=== PATIENT | male | born 1965 | race Caucasian/White ===

== ENCOUNTER 2022-08-09 13:37 | Inpatient (IN) | payer OTHER ==
--- NOTE | 2022-08-09 14:12 | RAD REPORT ---
EXAM DESCRIPTION: CT - Ct Stroke Brain Wo Cont - 08/09/2022 1:57 pm CLINICAL HISTORY: STROKE ALERTright-sided facial droop COMPARISON: No comparisons TECHNIQUE: Axial 5 millimeter thick images of the head were obtained without IV contrast. All CT scans are performed using dose optimization technique as appropriate and may include automated exposure control or mA/KV adjustment according to patient size. FINDINGS: No intracranial hemorrhage, mass, or cerebral edema. No acute infarction identifiable. No extra-axial fluid collections. Storm matter-white matter differentiation is preserved. Visualized portions of the mastoid air cells, paranasal sinuses, and orbits are unremarkable. Findings telephoned to doctor Braydon at 1340 hours. IMPRESSION: No CT evidence of acute intracranial process.
[2022-08-09 14:22] LABS: Absolute Lymphocytes (CBC) 2.1 K/uL (0.7-4.9); Hematocrit 41.7 % (39.6-49.0); Lymphocytes % 14.1 % (15.3-44.8); MCV 85.1 fL (80-100); MPV 9.1 fL (7.6-11.3)
[2022-08-09 14:37] LABS: Albumin 3.7 g/dL (3.4-5.0); Bilirubin Direct 0.3 mg/dL (0-0.2); Bilirubin Total 1.6 mg/dL (0.2-1.0); Potassium 3.1 mmol/L (3.5-5.1); Protein, Total 7.2 g/dL (6.4-8.2)
[2022-08-09 14:39] LABS: Troponin High Sensitivity 71.6 pg/mL (<58.9)
[2022-08-09 14:41] LABS: Protime INR 1.06
--- NOTE | 2022-08-09 15:03 | RAD REPORT ---
EXAM DESCRIPTION: CT - Head angio - 08/09/2022 2:54 pm CLINICAL HISTORY: STROKE ALERT Headache, drowsiness, CVA symptomology COMPARISON: Ct Stroke Brain Wo Cont dated 08/09/2022 TECHNIQUE: CT angiography of the head was performed with MIPs. All CT scans are performed using dose optimization technique as appropriate and may include automated exposure control or mA/KV adjustment according to patient size. FINDINGS: No evidence of aneurysm is detected. No flow-limiting stenosis or vascular malformation id entified. Antegrade flow is seen in the vertebral arteries. The vertebral arteries are codominant. The visualized dural venous sinuses are patent. IMPRESSION: No significant flow abnormality is detected.
--- NOTE | 2022-08-09 15:11 | RAD REPORT ---
EXAM DESCRIPTION: CT - Neck Angio - 08/09/2022 2:54 pm CLINICAL HISTORY: pain Headache, drowsiness, CVA symptomology COMPARISON: No comparisons TECHNIQUE: CT angiography of the neck vessels was performed with MIPs. All CT scans are performed using dose optimization technique as appropriate and may include automated exposure control or mA/KV adjustment according to patient size. FINDINGS: A left aortic arch is identified with normal three vessel configuration of the great vesse ls. No significant flow abnormality is seen of the common carotid bilaterally. Mild atherosclerosis both proximal ICAs. No significant carotid stenosis seen. Normal flow is seen within both vertebral arteries. IMPRESSION: No significant carotid stenosis identified.
--- NOTE | 2022-08-09 15:11 | RAD REPORT ---
EXAM DESCRIPTION: RAD - Chest Single View - 08/09/2022 3:02 pm CLINICAL HISTORY: CVA Chest pain. COMPARISON: No comparisons FINDINGS: Portable technique limits examination quality. The lungs are grossly clear. The heart is normal in size. No displaced fractures. IMPRESSION: No acute intrathoracic process suspected.
--- NOTE | 2022-08-09 15:13 | ER ---
Nurse's Notes [facility] Name: Valerio Yancey Age: 57 yrs Sex: Male : 1965 Arrival Date: 08/09/2022 Time: 13:46 Bed 19 Private MD: Diagnosis: New onset atrial fibrillation, chest pain, headache, facial droop Presentation: 08/09 13:57 Chief complaint: EMS states: [facility]3 stroke symptoms. patient complains of left sided headache, shortness of breath, and right sided facial droop. EMS started a 18 g IV in the patients right AC, and started NS bolus. Coronavirus screen: At this time, the client does not indicate any symptoms associated with coronavirus-19. Ebola Screen: No symptoms or risks identified at this time. The patients blood glucose was checked before arriving to the hospital and was found to be normal. Initial Sepsis Screen: Does the patient meet any 2 criteria? No. Patient's initial sepsis screen is negative. Does the patient have a suspected source of infection? No. Patient's initial sepsis screen is negative. Risk Assessment: Do you want to hurt yourself or someone else? Patient reports no desire to harm self or others. Note last known well is approx 0730 this morning 08/09/2022. Onset of symptoms is unknown. 13:57 Method Of Arrival: EMS: [facility] ap3 13:57 Acuity: HECTOR 2 ap3 13:57 An acute neurological deficit is present. ap3 Triage Assessment: 14:10 The onset of the patients symptoms was more than six hours ago. General: Appears ap3 distressed, Behavior is anxious. Pain: Complains of pain in left side of head, chest. Neuro: Facial droop on right, Reports dizziness, headache in left a syncopal episode. Cardiovascular: Patient's skin is warm and dry. Respiratory: Reports shortness of breath Airway is patent Respiratory effort is even, unlabored, Respiratory pattern is regular, symmetrical, tachypnea. 15:44 The onset of the patients symptoms was August 09, 2022 at 07:30. ap3 Stroke Activation: Physician: Stroke Attending; Name: ; Notified At: ; Arrived At: Physician: Chief Stroke Resident; Name: ; Notified At: ; Arrived At: Physician: Stroke Resident; Name: ; Notified At: ; Arrived At: Physician: ED Attending; Name: de león; Notified At: ; Arrived At: Physician: ED Resident; Name: ; Notified At: ; Arrived At: Historical: - Allergies: 14:09 No Known Allergies; ap3 - Home Meds: 14:10 unknown diuretic [Active]; ap3 - PMHx: 14:10 EJ of 40%; ap3 - Immunization history:: Client reports receiving the 2nd dose of the Covid vaccine. - Social history:: Smoking status: Patient denies any tobacco usage or history of. Screenin:30 [facility] ED Fall Risk Assessment (Adult) Confusion or Disorientation Yes (5 pts) ap3 Intoxicated or Sedated No (0 pts) Impaired Gait Yes (1 pt) Mobility Assist Device Used No (0 pt) Altered Elimination No (0 pt) Score/Fall Risk Level 3 or more points = High Risk Oriented to surroundings, Maintained a safe environment, Educated pt \T\ family on fall prevention, incl call for assistance when getting out of bed, Assessed \T\ reinforced patient's understanding of fall precautions, Provided non-skid footwear. Abuse screen: Denies threats or abuse. Nutritional screening: No deficits noted. Tuberculosis screening: No symptoms or risk factors identified. Assessment: 14:13 VAN Scoring:. ap3 15:29 Patient has been NPO before screening. The patient is alert, and able to follow ap3 commands. The patient does not exhibit slurred or garbled speech. The patient is not exhibiting difficulty speaking. The patient does not exhibit difficulty understanding words. The patient is able to swallow own secretions with no drooling or need for suction. Patient tolerated one teaspoon of water. No drooling, immediate coughing, gurgling, or clearing of the throat was noted. The patient tolerated 90mL of water. No drooling, immediate coughing, gurgling, or clearing of the throat was noted. The patient passed the bedside swallow screening. Oral medications may be given as ordered. Contact Physician for further diet orders. Provider notified of bedside swallow screening results: Estuardo De León MD. TNKase (Tenecteplase) Screening:. 17:06 Neuro: Level of Consciousness is awake, alert, obeys commands, Oriented to person, ap3 place, time, situation, Speech is normal. 17:40 Reassessment: nurse attempted report to receiving nurse. was informed the receiving ap3 nurse would return my call for report. 18:14 Reassessment: report given to receiving nurse. ap3 Vital Signs: 13:57 BP 151 / 100; Pulse 101; Resp 26; Temp 98.1(O); Pulse Ox 100% on R/A; Weight 106.59 kg; ap3 Height 6 ft. 1 in. (185.42 cm); 15:14 BP 127 / 66; Pulse 89; Resp 16; Pulse Ox 95% ; ap3 15:42 BP 143 / 86; Pulse 97; Pulse Ox 96% on R/A; ap3 17:05 BP 120 / 82; Pulse 86; Resp 16; Pulse Ox 100% on R/A; ap3 13:57 Body Mass Index 31.00 (106.59 kg, 185.42 cm) ap3 NIH Stroke Scale Scores: 15:45 NIHSS Score: 1 ap3 ED Course: 13:46 Patient arrived in ED. ld1 13:47 Estuardo De León MD is Attending Physician. ms3 13:56 CT Stroke Brain w/o Contrast In Process Unspecified. EDMS 13:57 Ella Goode, RN is Primary Nurse. ap3 14:09 Triage completed. ap3 14:12 Arm band placed on left wrist. ap3 14:12 Inserted saline lock: 20 gauge in left antecubital area, using aseptic technique. ap3 14:12 Maintain EMS IV. Dressing intact. Good blood return noted. Site clean \T\ dry. Gauge \T\ ap 3 site: 18g right AC. 14:13 Patient has correct armband on for positive identification. Placed in gown. Bed in low ap3 position. Call light in reach. Side rails up X2. media monitor on. Pulse ox on. NIBP on. 14:56 CT Head Angio In Process Unspecified. EDMS 14:56 Neck Angio In Process Unspecified. EDMS 15:04 Stroke CXR 1 View In Process Unspecified. EDMS 15:12 Estuardo De León MD is Hospitalizing Provider. sp3 15:12 Karissa Harris MD is Hospitalizing Provider. sp3 15:24 Bhanu Coppola is Hospitalizing Provider. sp3 15:44 No provider procedures requiring assistance completed. ap3 17:05 Pt visited by . ap3 17:53 Patient admitted, IV remains in place. ap3 19:22 Primary Nurse role handed off by Ella Goode RN mw2 Administered Medications: 15:29 Drug: Lovenox (enoxaparin) 100 mg Route: Sub-Q; Site: abdomen; ap3 16:59 Follow up: Response: No adverse reaction ap3 15:42 Drug: Tylenol 1000 mg Route: PO; ap3 16:58 Follow up: Response: No adverse reaction; Pain is unchanged, physician notified ap3 16:58 Drug: morphine 4 mg Route: IVP; Infused Over: 4 mins; Site: right antecubital; ap3 17:53 Follow up: Response: No adverse reaction; Pain is decreased ap3 16:59 Drug: Zofran (Ondansetron) 4 mg Route: IVP; Site: right antecubital; ap3 17:53 Follow up: Response: No adverse reaction ap3 Medication: 14:14 VIS not applicable for this client. ap3 Point of Care Testing: Blood Glucose: 14:13 Blood Glucose: 124 mg/dL; ap3 Ranges: Outcome: 15:12 Decision to Hospitalize by Provider. sp3 18:14 Admitted to Med/surg ap3 18:14 Condition: good 18:14 Instructed on the need for admit. 19:40 Patient left the ED. kd3 NIH Stroke Scale - NIH Stroke Score Date: 08/09/2022 Time: 15:45 Total Score = 1 1a. Level of Consciousness (LOC) - 0(Alert) 1b. Level of Consciousness (LOC) (Month \T\ Age) - 0(Both) 1c. LOC Commands (Open \T\ Closes Eyes/Ground Support Equipment Assembler) - 0(Both) 2. Best Gaze (Lateral Gaze Paresis) - 0(Normal) 3. Visual Field Loss - 0(No visual loss) 4. Facial Palsy - 1(Minor Paralysis) 5a. Left Arm: Motor (10-second hold) - 0(No drift) 5b. Right Arm: Motor (10-second hold) - 0(No drift) 6a. Left Leg: Motor (5-second hold - always test supine) - 0(No drift) 6b. Right Leg: Motor (5-second hold - always test supine) - 0(No drift) 7. Limb Ataxia (finger/nose \T\ heel/arguello - test with eyes open) - 0(Absent) 8. Sensory Loss (pinprick arms/legs/face) - 0(Normal) 9. Best Language: Aphasia (description/naming/reading) - 0(No aphasia) 10. Dysarthria (speech clarity - read or repeat words) - 0(Normal) 11. Extinction and Inattention (visual/tactile/auditory/spatial/personal) - 0(No abnormality) Initials: ap3 Signatures: Dispatcher [employer] Ella Herbert, RN RN ap3 Jim Pratt mw2 Frank Choe DO DO ms3 Sarah Camilo RN RN ld1 Estuardo De León MD MD sp3 Letty Kaur RN RN kd3
--- NOTE | 2022-08-09 15:13 | EDPHYS ---
Physician Documentation [facility] Name: Valerio Yancey Age: 57 yrs Sex: Male : 1965 Arrival Date: 08/09/2022 Time: 13:46 Bed 19 Private MD: ED Physician Estuardo Bryson HPI: 08/09 14:11 This 57 yrs old Male presents to ER via EMS with complaints of S/S of Possible Stroke. sp3 14:11 57-year-old male with a history of CAD, CHF, hypertension sent from [place] for possible sp3 stroke secondary to altered mental status and questionable right-sided facial droop. EMS arrival they found patient with mental status with intermittent neuro syncopal episodes and complaints of headache and neck pain. Right-sided lower facial droop was noted by EMS. Per them, last time patient was seen normal was yesterday p.m. Patient initially went to his job at 7:30 AM and at 8 AM he notified his that he was seeking medical attention secondary to his symptoms at which point he arrived at the [place] clinic. He denies any fever, URI symptoms, chest pain, back pain, shortness of breath, abdominal pain, nausea, vomiting, diarrhea, rash, lower motor neurological deficits, known sick contacts, travel history, or any other symptoms at this time. Stroke was initially called which point CT scan was negative and remainder of work-up continues. Please see below for remainder of H\T\P and assessment and plan. EMS also found patient in atrial fibrillation and patient has no history of such diagnoses, is not on any antiarrhythmics, and is also not on any anticoagulant agents.. Historical: - Allergies: 14:09 No Known Allergies; ap3 - Home Meds: 14:10 unknown diuretic [Active]; ap3 - PMHx: 14:10 EJ of 40%; ap3 - Immunization history:: Client reports receiving the 2nd dose of the Covid vaccine. - Social history:: Smoking status: Patient denies any tobacco usage or history of. ROS: 14:13 Eyes: Negative for injury, pain, redness, and discharge, ENT: Negative for injury, sp3 pain, and discharge. Exam: 14:14 Radiologist reports: Negative CT scan of the head. sp3 14:14 Constitutional: This is a well developed, well nourished patient who is awake, alert, and in no acute distress. Head/Face: Normocephalic, atraumatic. Eyes: Pupils equal round and reactive to light, extra-ocular motions intact. Lids and lashes normal. Conjunctiva and sclera are non-icteric and not injected. Cornea within normal limits. Periorbital areas with no swelling, redness, or edema. ENT: Nares patent. No nasal discharge, no septal abnormalities noted. External auditory canals are clear. Oropharynx with no redness, swelling, or masses, exudates, or evidence of obstruction, uvula midline. Mucous membranes moist. Neck: Trachea midline, no thyromegaly or masses palpated, and no cervical lymphadenopathy. Supple, full range of motion without nuchal rigidity, or vertebral point tenderness. No Meningismus. Chest/axilla: Normal chest wall appearance and motion. Nontender with no deformity. No lesions are appreciated. Respiratory: Lungs have equal breath sounds bilaterally, clear to auscultation and percussion. No rales, rhonchi or wheezes noted. No increased work of breathing, no retractions or nasal flaring. Abdomen/GI: Soft, non-tender, with normal bowel sounds. No distension or tympany. No guarding or rebound. No evidence of tenderness throughout. Skin: Warm, dry with normal turgor. Normal color with no rashes, no lesions, and no evidence of cellulitis. MS/ Extremity: Pulses equal, no cyanosis. Neurovascular intact. Full, normal range of motion. 14:14 Cardiovascular: Patient in atrial fibrillation at 100 bpm without any ectopy.. 14:14 Neuro: Patient alert and oriented x4 and answering questions appropriately. Right-sided facial droop noted without forehead involvement. Remainder of cranial nerves are normal. Lower neurological exam for pain and temperature, proprioception and motor function are all normal.. 14:17 ECG was reviewed by the Attending Physician. EKG demonstrates atrial fibrillation with sp3 an SVT of 104 bpm with left axis deviation and nonspecific diffuse ST/T changes without evidence of ischemia in the setting of EKG with artifact. Vital Signs: 13:57 BP 151 / 100; Pulse 101; Resp 26; Temp 98.1(O); Pulse Ox 100% on R/A; Weight 106.59 kg; ap3 Height 6 ft. 1 in. (185.42 cm); 15:14 BP 127 / 66; Pulse 89; Resp 16; Pulse Ox 95% ; ap3 15:42 BP 143 / 86; Pulse 97; Pulse Ox 96% on R/A; ap3 17:05 BP 120 / 82; Pulse 86; Resp 16; Pulse Ox 100% on R/A; ap3 13:57 Body Mass Index 31.00 (106.59 kg, 185.42 cm) ap3 NIH Stroke Scale Scores: 15:45 NIHSS Score: 1 ap3 MDM: 13:54 Patient medically screened. sp3 14:17 Data reviewed: vital signs, nurses notes, EMS record, lab test result(s), EKG, sp3 radiologic studies. 14:18 ED course: 57-year-old male with altered mental status, headache, right-sided facial sp3 droop and near syncope type symptoms. Broad differential diagnosis and exist including CVA, ICH, embolic event from new onset atrial fibrillation, ACS, vascular disease. Obtain CT angiogram to better assess once negative ICH is confirmed on initial CT scan. Anticoagulation with Lovenox will follow assuming normal angiogram on CT. Laboratory values also are pending vital signs remain stable with mild hypertension and mild tachycardia while still in atrial fibrillation. Patient will be admitted pending work-up and final disposition/diagnosis.. 15:11 ED course: CT head and CT angiogram of the neck and brain are negative. INR is normal. sp3 Given his new onset of atrial fibrillation, Lovenox will be initiated 1 mg/kg subcutaneously. Patient is now stable for admission and his mental status is also improving. Only mildly elevated in the setting of creatinine of 1.7. Troponins will be serially trended by inpatient team.. 08/09 13:54 Order name: Basic Metabolic Panel; Complete Time: 15: sp3 08/09 13:54 Order name: CBC with Diff; Complete Time: 15: sp3 08/09 13:54 Order name: Hepatic Function; Complete Time: 15: sp3 08/09 13:54 Order name: High Sensitivity Troponin; Complete Time: 15: sp3 08/09 13:54 Order name: Magnesium; Complete Time: 15: sp3 08/09 13:54 Order name: Protime (+inr); Complete Time: 15: sp3 08/09 13:54 Order name: Ptt, Activated; Complete Time: 15: sp3 08/09 13:54 Order name: CT Stroke Brain w/o Contrast; Complete Time: 14:26 sp3 08/09 13:54 Order name: Stroke CXR 1 View sp3 08/09 14:09 Order name: Glucose, Ancillary Testing; Complete Time: 14:26 EDMS 08/09 14:26 Order name: CT Head Angio; Complete Time: 15:08 sp3 08/09 14:51 Order name: Neck Angio EDMS 08/09 15:32 Order name: SARS RAPID ap3 08/09 13:54 Order name: Call for Old EKG sp3 08/09 13:54 Order name: EKG; Complete Time: 13:54 sp3 08/09 13:54 Order name: Accucheck; Complete Time: 14:14 sp3 08/09 13:54 Order name: Cardiac monitoring; Complete Time: 14:14 sp3 08/09 13:54 Order name: EKG - Nurse/Tech; Complete Time: 14:14 sp3 08/09 13:54 Order name: IV Saline Lock; Complete Time: 14:14 sp3 08/09 13:54 Order name: Labs collected and sent; Complete Time: 14:16 sp3 08/09 13:54 Order name: NPO; Complete Time: 14:14 sp3 08/09 13:54 Order name: O2 Per Protocol; Complete Time: 14:14 sp3 08/09 13:54 Order name: O2 Sat Monitoring; Complete Time: 14:14 sp3 08/09 13:54 Order name: Stroke Swallow Screen; Complete Time: 15:29 sp3 Administered Medications: 15:29 Drug: Lovenox (enoxaparin) 100 mg Route: Sub-Q; Site: abdomen; ap3 16:59 Follow up: Response: No adverse reaction ap3 15:42 Drug: Tylenol 1000 mg Route: PO; ap3 16:58 Follow up: Response: No adverse reaction; Pain is unchanged, physician notified ap3 16:58 Drug: morphine 4 mg Route: IVP; Infused Over: 4 mins; Site: right antecubital; ap3 17:53 Follow up: Response: No adverse reaction; Pain is decreased ap3 16:59 Drug: Zofran (Ondansetron) 4 mg Route: IVP; Site: right antecubital; ap3 17:53 Follow up: Response: No adverse reaction ap3 Point of Care Testing: Blood Glucose: 14:13 Blood Glucose: 124 mg/dL; ap3 Ranges: Critical Glucose Levels:Adult <50 mg/dl or >400 mg/dl <40 mg/dl or >180 mg/dl Disposition Summary: 08/09/22 15:12 Hospitalization Ordered Hospitalization Status: Inpatient Admission sp3 Location: Telemetry/MedSurg (Inpatient) sp3 Condition: Stable sp3 Problem: new sp3 Symptoms: have worsened sp3 Bed/Room Type: Standard sp3 Provider: Bhanu Coppola(08/09/22 15:24) sp3 Room Assignment: 221(08/09/22 18:05) ja1 Diagnosis - New onset atrial fibrillation, chest pain, headache, facial droop sp3 Forms: - Medication Reconciliation Form sp3 - SBAR form sp3 NIH Stroke Scale - NIH Stroke Score Date: 08/09/2022 Time: 15:45 Total Score = 1 1a. Level of Consciousness (LOC) - 0(Alert) 1b. Level of Consciousness (LOC) (Month \T\ Age) - 0(Both) 1c. LOC Commands (Open \T\ Closes Eyes/Biomass Power Plant Superintendent) - 0(Both) 2. Best Gaze (Lateral Gaze Paresis) - 0(Normal) 3. Visual Field Loss - 0(No visual loss) 4. Facial Palsy - 1(Minor Paralysis) 5a. Left Arm: Motor (10-second hold) - 0(No drift) 5b. Right Arm: Motor (10-second hold) - 0(No drift) 6a. Left Leg: Motor (5-second hold - always test supine) - 0(No drift) 6b. Right Leg: Motor (5-second hold - always test supine) - 0(No drift) 7. Limb Ataxia (finger/nose \T\ heel/arguello - test with eyes open) - 0(Absent) 8. Sensory Loss (pinprick arms/legs/face) - 0(Normal) 9. Best Language: Aphasia (description/naming/reading) - 0(No aphasia) 10. Dysarthria (speech clarity - read or repeat words) - 0(Normal) 11. Extinction and Inattention (visual/tactile/auditory/spatial/personal) - 0(No abnormality) Initials: ap3 Signatures: Dispatcher [employer] EDMS Gely Nguyen RN RN ss Jerry Price RN RN ja1 Ella Goode RN RN ap3 Estuardo Bryson MD MD sp3 Corrections: (The following items were deleted from the chart) 14:14 14:11 57-year-old male with a history of CAD, CHF, hypertension sent from [facility] for possible stroke secondary to altered mental status and questionable right-sided facial droop. EMS arrival they found patient with mental status with intermittent neuro syncopal episodes and complaints of headache and neck pain. Right-sided lower facial droop was noted by EMS. Per them, last time patient was seen normal was yesterday p.m. Patient initially went to his job at 7:30 AM and at 8 AM he notified his that he was seeking medical attention secondary to his symptoms at which point he arrived at the [place] clinic. He denies any fever, URI symptoms, chest pain, back pain, shortness of breath, abdominal pain, nausea, vomiting, diarrhea, rash, lower motor neurological deficits, known sick contacts, travel history, or any other symptoms at this time. Stroke was initially called which point CT scan was negative and remainder of work-up continues. Please see below for remainder of H\T\P and assessment and plan.. sp3 15:24 15:12 Karissa Harris 3 sp3 17:26 15:12 3 18:05 17:26 [facility] ja1
[2022-08-09] MEDS ORDERED: ENOXAPARIN 100 MG/ML SYR SQ ONE (15:18)
[2022-08-09] MEDS ORDERED: ACETAMINOPHEN 500 MG TAB ONE (15:40)
[2022-08-09 16:05] LABS: SARS-CoV-2 Antigen Rapid Res Negative (Negative)
[2022-08-09] MEDS ORDERED: MORPHINE 4 MG/ML SYR ONE (16:48)
[2022-08-09] MEDS ORDERED: ONDANSETRON 4 MG/2 ML VIAL ONE (16:49)
[2022-08-09] MEDS ORDERED: ACETAMINOPHEN 325 MG TABLET PO PRN (18:05)
--- NOTE | 2022-08-09 18:17 | P.HP ---
Certification for Inpatient Patient admitted to: Inpatient With expected LOS: >2 Midnights Patient will require the following post-hospital care: None Practitioner: I am a practitioner with admitting privileges, knowledge of patient current condition, hospital course, and medical plan of care. Services: Services provided to patient in accordance with Admission requirements found in Title 42 Section 412.3 of the Code of Federal Regulations Patient History Date of Service: 08/09/22 Reason for admission: A-fib with RVR, Chest pain History of Present Illness: Patient is a 56-year-old male with a past medical history significant for CAD, CHF, hypertension who presents with complaint of chest pain, neck pain, left- sided numbness\tingling as well as right facial droop. Patient reported that he started experiencing left chest wall pain while at work today. Patient rated pain as 5/10 in severity and described pain as sharp in quality. Patient reported that neck pain was more intense, rated pain as 7/10 in severity and described as aching in quality. Patient reported that shortly after he started experiencing left-sided numbness\tingling as well as headache. Patient reported associated signs and symptoms of shortness of breath, diaphoresis, palpitations, dizziness, near syncope and generalized malaise. Patient denies any other signs and symptoms. Symptoms are aggravated or relieved by nothing. Patient reported that he was [facility] and was referred to the ER for further management. Of note, patient was noted to be confused per medical records. - Past Medical/Surgical History -: HTN -: CAD -: CHF Past Surgical History: Reviewed- Non-Contributory - Family History Family History: Reviewed- Non-Contributory (Patient) - Social History Smoking Status: Never smoker Alcohol use: Yes CD- Drugs: No Caffeine use: Yes Place of Residence: Home Review of Systems General: Sweats, Malaise Eyes: Unremarkable ENT: Unremarkable Respiratory: Shortness of Breath Cardiovascular: Chest Pain, Palpitations Gastrointestinal: Unremarkable Genitourinary: Unremarkable Musculoskeletal: Neck Pain Integumentary: Unremarkable Neurological: Numbness, Other (Left-sided numbness\tingling, right facial droop, headache, dizziness, near syncope) Physical Examination - Physical Exam General: Alert, In no apparent distress, Oriented x3, Cooperative HEENT: Atraumatic, PERRLA, Mucous membr. moist/pink, EOMI, Sclerae nonicteric Neck: Supple, 2+ carotid pulse no bruit, No LAD, Without JVD or thyroid abnormality Respiratory: Clear to auscultation bilaterally, Normal air movement Cardiovascular: No edema, Regular rate/rhythm, Normal S1 S2 Capillary refill: <2 Seconds Gastrointestinal: Normal bowel sounds, Soft and benign, Non-distended, No tenderness Musculoskeletal: No clubbing, No swelling, No tenderness Integumentary: No rashes, No breakdown, No significant lesion Neurological: Normal speech, Normal tone, Normal affect Lymphatics: No axilla or inguinal lymphadenopathy - Studies Laboratory Data (last 24 hrs) 08/09/22 13:50: PT 11.7, INR 1.06, APTT 31.4 08/09/22 13:50: WBC 15.00 H, Hgb 14.3, Hct 41.7, Plt Count 212 08/09/22 13:50: Sodium 135 L, Potassium 3.1 L, BUN 35 H, Creatinine 1.74 H, Glucose 119 H, Magnesium 2.0, Total Bilirubin 1.6 H, AST 81 H, ALT 88 H, Alkaline Phosphatase 47 Assessment and Plan - Plan --A-fib with RVR. Cardiology consulted. Echocardiogram pending. Continue weight-based Lovenox subQ. Telemetry to monitor for any malignant arrhythmia. Further management per environmental consultant. --TIA. CTA Neck\Head and CT brain unremarkable for any acute findings. MRI brain pending for further evaluation. Neurology consulted. Patient placed on aspirin and statin. Will await further recommendations. --Acute encephalopathy. Resolved at time of assessment. CT brain unremarkable for any acute intracranial abnormality. Continue supportive care --Acute systolic or diastolic CHF. Patient reports a history of CHF. Echocardiogram pending for further evaluation. BMP pending. Patient reports that he is on hydrochlorothiazide at home. Continue Lasix. Daily weight and strict I/O. --History of CAD. Continue aspirin and statin. --Hypertension. Poorly controlled. Labetalol as needed for further management. Continue home medications when available. --Headache. Tylenol as needed. --Anxiety disorder. Patient placed on his home medication of venlafaxine. Ativan as needed. --Near syncope. CT neck unremarkable for any carotid artery stenosis. Echocardiogram pending. We will get some orthostatic vital signs. Fall precautions. --Leukocytosis. Likely reactive. Blood cultures pending. We will continue to monitor WBCs --CKD 3A. Baseline functions unknown. We will continue to monitor renal functions --Hypokalemia. Replete as needed. --DVT prophylaxis with Lovenox subQ. Discharge Plan: Home Plan to discharge in: Greater than 2 days - Advance Directives Does patient have a Living Will: No Does patient have a Durable POA for Healthcare: No - Code Status/Comfort Care Code Status Assessed: Yes Physician Review: Patient Assessed, Agree with Above Assessment and Plan Critical Care: No
[2022-08-09] MEDS ORDERED: ASPIRIN 81 MG CHEWABLE TABLET PO ONE (18:21)
[2022-08-09] MEDS ORDERED: POTASSIUM CL SA 10 MEQ TAB PO ONE (18:23)
[2022-08-09] MEDS ORDERED: LABETALOL 20 MG/4ML SYRINGE IV PRN (20:04)
[2022-08-09 20:16] LABS: Magnesium 2.2 mg/dL (1.6-2.4); Phosphorus 4.2 mg/dL (2.5-4.9)
[2022-08-09 20:17] LABS: Thyroid Stimulating Hormone 3.87 uIU/mL (0.358-3.740)
[2022-08-09] MEDS: HYDROCODONE/APAP 10/325 TAB PO PRN (20:20)
[2022-08-09] MEDS: VENLAFAXINE HCL 75 MG TABLET PO SCH ×2 (21:00→21:36)
[2022-08-09] MEDS: ENOXAPARIN 100 MG/ML SYR SQ SCH (21:37)
[2022-08-09] MEDS: LORazepam 2 MG/ML VIAL IV PRN (21:51)
[2022-08-09] MEDS: ATORVASTATIN 40 MG TAB PO SCH (21:51)
[2022-08-09 23:59] LABS: Specific Gravity > 1.030 (1.005-1.030); Urine Bacteria None Seen /HPF (<20); Urine Bilirubin NEGATIVE (Negative); Urine Blood 2+ (Negative); Urine Clarity Clear (Clear); Urine Color Light-Yellow (Yellow); Urine Glucose NEGATIVE (Negative); Urine Protein 2+ (Negative); Urine Urobilinogen Normal (Normal)
[2022-08-10 00:51] VITALS: BMI 30.9
[2022-08-10 02:05] LABS: Absolute Lymphocytes (CBC) 1.5 K/uL (0.7-4.9); Hematocrit 43.5 % (39.6-49.0); Lymphocytes % 13.2 % (15.3-44.8); MCV 86.2 fL (80-100); MPV 9.1 fL (7.6-11.3); RBC Red Blood Cell Count 5.05 M/uL (4.33-5.43)
[2022-08-10 02:22] LABS: Potassium 3.1 mmol/L (3.5-5.1)
[2022-08-10] MEDS: HYDROCODONE/APAP 10/325 TAB PO PRN ×3 (03:58→19:52)
[2022-08-10] MEDS ORDERED: POTASSIUM 25 MEQ EFFERV TAB PO ONE (04:01)
[2022-08-10] MEDS: FUROSEMIDE 20 MG/ 2ML VIAL IV SCH (08:17)
[2022-08-10] MEDS: ENOXAPARIN 100 MG/ML SYR SQ SCH ×2 (08:17→19:54)
[2022-08-10] MEDS: VENLAFAXINE HCL 75 MG TABLET PO SCH ×2 (08:17→19:54)
--- NOTE | 2022-08-10 09:11 | RAD REPORT ---
EXAM DESCRIPTION: MRI - Brain Wo Cont - 08/10/2022 8:56 am CLINICAL HISTORY: Right facial droop COMPARISON: Head CT August 09, 2022 TECHNIQUE: Axial, sagittal, and coronal magnetic resonance images of the brain were obtained. FINDINGS: No significant abnormal signal within the brain is noted. Diffusion-weighted/ADC mapping does not reveal evidence of acute infarction. The ventricles are normal caliber. An extra-axial fluid collection is not noted. Fluid within the sinuses/mastoids is not seen IMPRESSION: No acute intracranial abnormality noted
[2022-08-10] MEDS: ONDANSETRON 4 MG/2 ML VIAL IV PRN (09:52)
--- NOTE | 2022-08-10 12:35 | P.PN ---
Subjective Date of Service: 08/10/22 Chief Complaint: A-fib with RVR, Chest pain Patient denies any complaint except for feeling of unwell. No fever Blood pressure has been stable. Physical Examination - Vital Signs Temperature: 98.3 F Blood Pressure: 120/65 Pulse: 90 Respirations: 18 Pulse Ox (%): 94 - Studies Laboratory Data (last 24 hrs) 08/09/22 13:50: PT 11.7, INR 1.06, APTT 31.4 08/09/22 13:50: WBC 15.00 H, Hgb 14.3, Hct 41.7, Plt Count 212 08/09/22 13:50: Sodium 135 L, Potassium 3.1 L, BUN 35 H, Creatinine 1.74 H, Glucose 119 H, Magnesium 2.0, Total Bilirubin 1.6 H, AST 81 H, ALT 88 H, Alkaline Phosphatase 47 Assessment And Plan - Current Problems (Diagnosis) (1) Atrial fibrillation Current Visit: Yes Status: Acute (2) Chest pain Current Visit: Yes Status: Acute (3) Numbness and tingling of left side of face Current Visit: Yes Status: Acute (4) Chronic diastolic heart failure Current Visit: Yes Status: Acute - Plan Physical Exam General: Alert, In no apparent distress, Oriented x3, Cooperative HEENT: Atraumatic, PERRLA, Mucous membr. moist/pink, EOMI, Sclerae nonicteric Neck: Supple, no elevated JVD. Respiratory: Clear to auscultation bilaterally, Normal air movement Cardiovascular: No edema, Regular rate/rhythm, Normal S1 S2 Gastrointestinal: Normal bowel sounds, Soft and benign, Non-distended, No tenderness Musculoskeletal: No clubbing, No swelling, No tenderness Integumentary: No rashes, No breakdown, No significant lesion Neurological: Normal speech, Normal tone, Normal affect Lymphatics: No axilla or inguinal lymphadenopathy. Plan: New onset atrial fibrillation. MRI of the brain is negative for acute stroke. Acute stroke ruled out. A-fib is rate controlled. Patient is currently normotensive. Low-dose metoprolol. Monitor and optimize electrolytes. Keep potassium level around 4 and magnesium around 2. Awaiting cardiology input. Echocardiogram done, results to be followed. Negative for orthostasis. He appears compensated for heart failure. Patient may be a candidate for anticoagulation for A-fib.
[2022-08-10] MEDS ORDERED: POTASSIUM CL SA 10 MEQ TAB PO ONE (12:39)
[2022-08-10] MEDS: LORazepam 2 MG/ML VIAL IV PRN ×2 (13:05→19:52)
[2022-08-10] MEDS ORDERED: MECLIZINE HCL 12.5 MG TAB PO PRN (14:01)
[2022-08-10] MEDS ORDERED: SUMATRIPTAN SUCC 6MG/0.5ML VIAL SQ ONE (14:15)
[2022-08-10] MEDS: ATORVASTATIN 40 MG TAB PO SCH (19:53)
--- NOTE | 2022-08-10 22:16 | CON ---
Reason For Consultation: Consultation called because of vertigo. History Of Present Illness: Mr. Yancey is a 57-year-old patient with hypertension, coronary artery disease, and congestive heart failure who comes to [facility] with atrial fibrillation, rapid ventricular response, and chest pain. His presenting complaint was chest pain, neck pain, left-side d numbness and tingling, and right facial droop, which was worrisome for possible stroke. He was jt ated in hospital with a rule out for myocardial infarction. Regarding the possibility of a stroke, teo bloom had a negative head CT scan, and CT angiogram of the head and neck were unremarkable. Subsequent b rain MRI showed no evidence of acute ischemic stroke. On questioning further, patient reports episodes of vertigo, especially when turning to the right, th e world seemed to turn about him. He would have difficulty standing, maintaining an upright position and had to remain still in order for the event to subside. He denies any prior episodes of falling, bumping his head, and any prolonged shaking or any potential trigger factors for vertigo. At this [facility], he also reports a long history of migraine headaches with pain that may be in the frontal regio n or in the back with light and sound sensitivity, nausea, vomiting. He said he did receive sumatrip kelley, which is worked very well to stop his headaches in the past. Past Medical History: As noted. Allergies: NO KNOWN DRUG ALLERGIES. Family History: No stroke in family history. Social History: Rare alcohol use. He does use tobacco. He does drink lots of energy drinks as he w orks out. Review of Systems: He did report fatigue, malaise, some inability to lift weights like he did in the past, and the right facial drooping, which has resolved. Left-sided numbness and tingling along with the chest pain has resolved. Did report headaches. No GI issues or genitourinary issues. He did have some shortness of breath and neck pain. Physical Examination: Vital Signs: Blood pressure 101/64, pulse 87, respiratory rate 16, temperature 98.0, oxygen saturati on 94% on room air. There were orthostatics done. The patient is lying blood pressure 130/68, pulse 91; sitting blood pressure 133/61, pulse 50; and standing blood pressure 122/58, pulse 72. He denie s symptoms. General: Mr. Yancey is resting in bed. He is in no acute distress. HEENT: He is normocephalic, atraumatic. Sclerae anicteric. Oropharynx is pink and moist. Neck: Supple. Chest: Clear. Heart: Regular. Extremities: Show no significant finding of clubbing, cyanosis, or edema. Neurological: He is alert and oriented to situation, place, person. Follows all commands appropriat luis. He has no cranial nerve deficits. No focal motor, sensory, or coordination deficits. He has 5 /5 strength proximally and distally. Intact sensation to light touch, pinprick, arms, legs, and he d oes have a headache, he says right in the frontal region at this point. Reflex is symmetric. Laboratory Studies: Complete blood count with differential initially showed white blood cell count o f 15 yesterday, today 11.7; neutrophils 75.5, otherwise normal hemoglobin, hematocrit, and platelets. INR 1.06. Chemistries show elevated creatinine of 1.65. Potassium was replaced from 3.1 to now 3. 5. He did have elevated troponins of 6.9 and is followed by Cardiology. He has triglycerides elevat ed 216, total cholesterol 156, LDL cholesterol 84, HDL 30. TSH elevated to 3.87, free T4 low at 0.72 . Liver function studies show elevated AST of 81, elevated ALT of 88, total bilirubin elevated at 1. 6, direct bilirubin elevated 2.3. Hemoglobin A1c is 5.3. Magnesium 2.2. Urinalysis shows 5-10 red blood cells, trace budding yeast, 2+ protein, 2+ blood, 1+ ketone. COVID testing is negative. Assessment: Mr. Yancey is a 57-year-old patient admitted for chest pain, history of atrial fibrillati on with rapid ventricular response and being ruled out for myocardial infarction. He did appear to h ave some focal findings, which have resolved and his brain MRI is negative. Head CT, CT angiogram of head and neck are negative. He does have symptoms consistent with positional vertigo and migraine w ith aura. Plan: 1.Consider magnesium perhaps chelated magnesium 100 mg daily to help reduce risk of migraine recurre nce. Also, potentially Qulipta 60 mg daily for migraine prophylaxis. 2.For abortive treatment, sumatriptan subcutaneous 6 mg as needed. Also consider Ubrelvy 100 mg dana ly. 3.Given risk factors for stroke at least aspirin 81 mg daily and folate 1 mg daily. Does have eleva anna triglycerides and LDL greater than 70. Consider a low-dose statin. 4.He was shown the Chris maneuver for benign paroxysmal positional vertigo. After discharge, he may follow up in Dr. Bauer's office within a month. DESIRE/LUBA Voice ID: [id number] Report ID: [id number]
[2022-08-11 05:30] LABS: Potassium 3.8 mmol/L (3.5-5.1)
[2022-08-11] MEDS: HYDROCODONE/APAP 10/325 TAB PO PRN ×2 (05:30→12:01)
[2022-08-11] MEDS: LORazepam 2 MG/ML VIAL IV PRN (05:31)
[2022-08-11] MEDS ORDERED: POTASSIUM 25 MEQ EFFERV TAB PO ONE (05:44)
--- NOTE | 2022-08-11 08:01 | EKG ---
Test Date: 2022-08-09 Test Time: 13:51:17 Tool Maintenance Technician: KESHA MEASUREMENT RESULTS: Intervals: Rate: 104 NH: QRSD: 102 QT: 354 QTc: 465 [place]: P: NH: QRS: -43 T: 73 INTERPRETIVE STATEMENTS: Atrial fibrillation with rapid ventricular response Left axis deviation Nonspecific ST and T wave abnormality, probably digitalis effect Abnormal ECG No previous ECG available for comparison Electronically Signed On 08-11-22 07:55:54 SOAP CHIPPER by Jean Oneal
--- NOTE | 2022-08-11 08:54 | ECHO ---
HEIGHT: 6 ft 1 in WEIGHT: 234 lb 15 oz DATE OF STUDY: 08/10/[address]: Lacie Church 2-DIMENSIONAL: YES M.MODE: YES DOPPLER: YES COLOR FLOW: YES TDS: PORTABLE: YES DEFINITY: BUBBLE STUDY: DIAGNOSIS: CHEST PAIN CARDIAC HISTORY: CATHERIZATION: NO SURGERY: NO PROSTHETIC VALVE: NO PACEMAKER: NO MEASUREMENTS (cm) DIASTOLIC (NORMALS) SYSTOLIC (NORMALS) IVSd 1.4 (0.6-1.2) LA Diam 3.2 (1.9-4.0) LVEF 42% LVIDd 3.1 (3.5-5.7) LVIDs 2.5 (2.0-3.5) %FS 20% LVPWd 1.4 (0.6-1.2) Ao Diam 2.9 (2.0-3.7) 2 DIMENSIONAL ASSESSMENT: RIGHT ATRIUM: NORMAL LEFT ATRIUM: NORMAL RIGHT VENTRICLE: NORMAL LEFT VENTRICLE: ATRIAL FIBRILLATION TRICUSPID VALVE: MILD TRICUSPID REGURGITATION MITRAL VALVE: MILD MITRAL REGURGITATION PULMONIC VALVE: NORMAL AORTIC VALVE: NORMAL PERICARDIAL EFFUSION: NONE AORTIC ROOT: NORMAL LEFT VENTRICULAR WALL MOTION: MILD GLOBAL HYPOKINESIS DOPPLER/COLOR FLOW: SEE BELOW COMMENTS: 1. MILDLY DEPRESSED LEFT VENTRICULAR EJECTION FRACTION 40-45% 2. MILD GLOBAL HYPOKINESIS 3. ATRIAL FIBRILLATION 4. MILD MITRAL REGURGITATION, MILD TRICUSPID REGURGITATION TECHNOLOGIST: FANG MARINO
[2022-08-11] MEDS: FUROSEMIDE 20 MG/ 2ML VIAL IV SCH (09:36)
[2022-08-11] MEDS: VENLAFAXINE HCL 75 MG TABLET PO SCH (09:36)
[2022-08-11] MEDS: ENOXAPARIN 100 MG/ML SYR SQ SCH (09:36)
[2022-08-11] MEDS ORDERED: SUMATRIPTAN SUCCI 50 MG TAB PO PRN (11:59)
[2022-08-11] MEDS: ONDANSETRON 4 MG/2 ML VIAL IV PRN (12:01)
--- NOTE | 2022-08-11 12:04 | P.PN ---
Subjective Date of Service: 08/11/22 Chief Complaint: A-fib with RVR, Chest pain Is complaining of intermittent headache which he attributes to migraine. He denies any chest. He remain in A-fib but rate controlled. Blood pressure has been soft but stable. Physical Examination - Vital Signs Temperature: 97.9 F Blood Pressure: 100/75 Pulse: 87 Respirations: 18 Pulse Ox (%): 96 Assessment And Plan - Current Problems (Diagnosis) (1) Atrial fibrillation Current Visit: Yes Status: Acute (2) Chest pain Current Visit: Yes Status: Acute (3) Numbness and tingling of left side of face Current Visit: Yes Status: Acute (4) Chronic diastolic heart failure Current Visit: Yes Status: Acute (5) Troponin level elevated Current Visit: Yes Status: Acute - Plan Physical Exam General: Alert, In no apparent distress, Oriented x3. Neck: Supple, no elevated JVD. Respiratory: Clear to auscultation bilaterally, Normal air movement Cardiovascular: No edema, irregular rhythm, normal S1 S2 Gastrointestinal: Normal bowel sounds, Soft and benign, Non-distended, No tenderness Musculoskeletal: No clubbing, No swelling, No tenderness Integumentary: No rashes, No breakdown, No significant lesion Neurological: Normal speech, Normal tone, Normal affect Plan: New onset atrial fibrillation. MRI of the brain is negative for acute stroke. Acute stroke ruled out. A-fib is rate controlled. Patient is currently normotensive. Start low-dose beta-sage Monitor and optimize electrolytes. Keep potassium level around 4 and magnesium around 2. Currently on full dose Lovenox for A-fib anticoagulation. Troponin was mildly elevated but trended flat Awaiting cardiology input. Echocardiogram: EF 40 to 45%. No orthostasis. He appears compensated for heart failure. Patient may be a candidate for anticoagulation for A-fib. Seen by neurology and diagnosed with migraine headaches. Patient states the sumatriptan helped his headache. Continue sumatriptan and meclizine as needed.
[2022-08-11 13:56] VITALS: O2SAT 94
[2022-08-11 16:34] VITALS: BP 92/71; TEMP 97.8
[2022-08-11] MEDS ORDERED: METOPROLOL TAR 25 MG TAB PO SCH (18:00)
--- NOTE | 2022-08-11 18:50 | P.DS ---
Admission Date: 08/09/22 Discharge Date: 08/11/22 Disposition: AMA-LEFT AGAINST MEDICAL ADVIC Reason for Admission: A-fib with RVR, Chest pain - Problems (1) Atrial fibrillation Status: Acute (2) Chest pain Status: Acute (3) Numbness and tingling of left side of face Status: Acute (4) Chronic diastolic heart failure Status: Acute (5) Troponin level elevated Status: Acute Brief History of Present Illness: Patient is a 56-year-old male with a past medical history significant for CAD, CHF, hypertension who presents with complaint of chest pain, neck pain, left- sided numbness\tingling as well as right facial droop. Patient reported that he started experiencing left chest wall pain while at work today. Patient rated pain as 5/10 in severity and described pain as sharp in quality. Patient reported that neck pain was more intense, rated pain as 7/10 in severity and described as aching in quality. Patient reported that shortly after he started experiencing left-sided numbness\tingling as well as headache. Patient reported associated signs and symptoms of shortness of breath, diaphoresis, palpitations, dizziness, near syncope and generalized malaise. Patient denies any other signs and symptoms. Symptoms are aggravated or relieved by nothing. Patient reported that he was seen at the [facility] and was referred to the ER for further management. Of note, patient was noted to be confused per medical records. Hospital Course: Patient diagnosed new onset atrial fibrillation. MRI of the brain negative for acute stroke. Acute stroke ruled out. A-fib was rate controlled. Patient was normotensive and started on low-dose metoprolol. He was also started on full dose Lovenox for A-fib anticoagulation. Troponin was mildly elevated but trended flat. Cardiology was consulted. Echocardiogram: EF 40 to 45%. No orthostasis. Patient was compensated for CHF. He was seen by neurology and diagnosed with migraine headaches and treated with sumatriptan Patient signed out AGAINST MEDICAL ADVICE and stated he will seek medical care elsewhere because cardiology delayed in seeing him. Vital Signs/Physical Exam: Temp Pulse Resp BP Pulse Ox 97.8 F 89 18 92/71 95 08/11/22 16:00 08/11/22 17:21 08/11/22 16:00 08/11/22 17:21 08/11/22 16:00 Laboratory Data at Discharge: WBC 11.70 K/uL (4.3-10.9) H 08/10/22 01:54 Hgb 14.6 g/dL (13.6-17.9) 08/10/22 01:54 Hct 43.5 % (39.6-49.0) 08/10/22 01:54 Plt Count 223 K/uL (152-406) 08/10/22 01:54 PT 11.7 SECONDS (9.5-12.5) 08/09/22 13:50 INR 1.06 08/09/22 13:50 APTT 31.4 SECONDS (24.3-36.9) 08/09/22 13:50 Sodium 137 mmol/L (136-145) 08/11/22 04:52 Potassium 3.8 mmol/L (3.5-5.1) 08/11/22 04:52 BUN 25 mg/dL (7-18) H 08/11/22 04:52 Creatinine 1.49 mg/dL (0.70-1.30) H 08/11/22 04:52 Glucose 133 mg/dL (74-106) H 08/11/22 04:52 Phosphorus 4.2 mg/dL (2.5-4.9) 08/09/22 19:30 Magnesium 2.2 mg/dL (1.6-2.4) 08/09/22 19:30 Total Bilirubin 1.6 mg/dL (0.2-1.0) H 08/09/22 13:50 AST 81 U/L (15-37) H 08/09/22 13:50 ALT 88 U/L (16-61) H 08/09/22 13:50 Alkaline Phosphatase 47 U/L (45-117) 08/09/22 13:50 Triglycerides 216 mg/dL (<150) H 08/10/22 01:54 Cholesterol 157 mg/dL (<200) 08/10/22 01:54 HDL Cholesterol 30 mg/dL (40-60) L 08/10/22 01:54 Cholesterol/HDL Ratio 5.23 08/10/22 01:54 Home Medications: Chlorthalidone 25 mg PO DAILY 08/09/22 Doxazosin Mesylate 8 mg PO DAILY 08/09/22 Venlafaxine HCl [Effexor*] 37.5 mg PO DAILY 08/09/22 Followup: ALEX JOHNSON [Primary Care Provider] -
== END 2022-08-11 18:32 | disposition left against medical advice (07) | DRG 308 ==
LOC: EDBD 13:37 → ER 13:37 → ERHOLD 16:49 → 2ND 18:19
PROVIDERS: ADMIT Internal Medicine; ATTEND Internal Medicine
DX: I48.91 Unspecified atrial fibrillation (principal); I50.33 Acute on chronic diastolic (congestive) heart failure; I13.0 Hypertensive heart and chronic kidney disease with heart failure and stage 1 through stage 4 chronic kidney disease, or unspecified chronic kidney disease; N18.31 Chronic kidney disease, stage 3a; Z53.29 Procedure and treatment not carried out because of patient's decision for other reasons; G43.109 Migraine with aura, not intractable, without status migrainosus; R29.810 Facial weakness; I25.10 Atherosclerotic heart disease of native coronary artery without angina pectoris; M54.2 Cervicalgia; E87.6 Hypokalemia; R07.9 Chest pain, unspecified; H81.10 Benign paroxysmal vertigo, unspecified ear; R77.8 Other specified abnormalities of plasma proteins; F41.9 Anxiety disorder, unspecified; D72.829 Elevated white blood cell count, unspecified; Z20.822 Contact with and (suspected) exposure to COVID-19
CPT/HCPCS: 36415; 70450; 70496; 70498; 70551; 71045; 80048; 80061; 80076; 81001; 82947; 83036; 83735; 83880; 84100; 84132; 84439; 84443; 84484; 85025; 85610; 85730; 87040; 87811; 93005; 93306; 96372; 96374; 96375; 99285; J1650; J1940; J2405; J3030; Q9967